=== PATIENT | male | born 1995 | race Caucasian/White ===

== ENCOUNTER 2016-08-26 14:23 | Emergency (ER) | payer OTHER ==
[2016-08-26 14:31] VITALS: BP 140/76
[2016-08-26] MEDS ORDERED: ACETAMINOPHEN 325 MG TABLET PO ONE (14:46)
--- NOTE | 2016-08-26 14:47 | ER Document Report ---
ED Medical Screen (RME) - General Stated Complaint: BACK PAIN Mode of Arrival: Wheelchair Information source: Patient Notes: Patient complains of lower back pain for the past week that worsened today. Patient denies any radiculopathy or paresthesia. Patient denies any injury. Patient does complain of some dysuria. I have greeted and performed a rapid initial assessment of this patient. A comprehensive ED assessment and evaluation of the patient, analysis of test results and completion of the medical decision making process will be conducted by additional ED providers. Physical Exam - Vital signs Vitals: Temp Pulse Resp BP Pulse Ox 97.9 F 83 16 140/76 H 98 08/26/16 14:30 08/26/16 14:30 08/26/16 14:30 08/26/16 14:30 08/26/16 14:30 - Back Back: Tender - Lower lumbar tenderness Course - Vital Signs Vital signs: Temp Pulse Resp BP Pulse Ox 97.9 F 83 16 140/76 H 98 08/26/16 14:30 08/26/16 14:30 08/26/16 14:30 08/26/16 14:30 08/26/16 14:30
[2016-08-26] MEDS ORDERED: KETOROLAC TROMETHAMINE 60 MG/2 ML SDV IM ONE (15:21)
--- NOTE | 2016-08-26 15:24 | ER Document Report ---
HPI - HPI Patient complains to provider of: back pain Onset: Other - this week Onset/Duration: Persistent Quality of pain: Achy Severity: Moderate Pain Level: 3 Context: Patient presents to the emergency department with complaints of low back pain. He reports the pain started last week. He denies trauma. He denies fever vomiting diarrhea. He denies urinary or bowel incontinence or retention. Denies numbness or tingling. 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 He denies past medical history of steroid injections. Denies history of cancer or IV drug use. Patient reports when he went to the bathroom today he had to sit down because his low back felt like it was tensing up when he was urinating. He denies pain with void. He denies penile discharge. Patient reports the same thing happened to his back almost a year ago. It happened after he helped somebody out of the ditch. He denies recent trauma or heavy lifting of anything. 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 IN LAST 30 DAYS: No - HEENT HEENT: Atraumatic, Normocephalic - NECK Neck: Normal Inspection, Supple. negative: Lymphadenopathy-Left, Lymphadenopathy-Right - RESPIRATORY Respiratory: Breath Sounds Normal, No Respiratory Distress O2 Sat by Pulse Oximetry: 98 - CARDIOVASCULAR Cardiovascular: Regular Rate, Regular Rhythm - GI/ABDOMEN Gastrointestinal: Abdomen Soft, Abdomen Non-Tender - BACK Back: Normal Inspection - No obvious deformity good distal movement and sensation complains of paraspinal tenderness mostly on the left side. Good reflexes, no erythema swelling or warmth noted - MUSCULOSKELETAL/EXTREMETIES Musculoskeletal/Extremeties: [place]ONY - NEURO Level of Consciousness: Awake, Alert, Appropriate Motor/Sensory: No Motor Deficit - DERM Integumentary: Warm, Dry Adult Front & Back Diagram: 1 - Complains of pain 2 - Complains of pain denies vertebral tenderness Course - Re-evaluation Re-evalutation: 08/26/16 15:25 The patient presents with low back pain without signs of spinal cord compression , cauda equine syndrome, infection, aneurysm, or other serious etiology. The patient is neurologically intact. The patient has good distal movement and sensation, denies urinary or bowel incontinence/retention. Given the extremely low risk of these diagnosis, further testing and evaluation for these possibilities does not appear to be indicated at this time. The patient has been instructed to return if the symptoms worsen or change in anyway. Patient was instructed on warning signs of back pain and spinal cord injuries. He was instructed to return for these symptoms. He verbalized understanding. - Vital Signs Vital signs: Temp Pulse Resp BP Pulse Ox 97.9 F 83 16 140/76 H 98 08/26/16 14:30 08/26/16 14:30 08/26/16 14:30 08/26/16 14:30 08/26/16 14:30 Discharge - Discharge Clinical Impression: Elevated blood pressure reading Back pain Qualifiers: Back pain location: low back pain Chronicity: acute Back pain laterality: bilateral Sciatica presence: without sciatica Qualified Code(s): M54.5 - Low back pain Condition: Stable Disposition: HOME, SELF-CARE Instructions: Muscle Strain ([facility]), Low Back Pain ([facility]), Ice Packs ([facility]), Warm Packs ([facility]), Toradol Injection ([facility]), Ibuprofen (General) ([facility]), Muscle Relaxers ([facility]) Additional Instructions: *You have been evaluated for back pain, muscle strain *Take medication as prescribed *Rest/ alternate with ice and heat packs *Follow up with a primary care provider within one week for recheck *Monitor your blood pressure. Your blood pressure was elevated today. This may be because you were anxious, in pain or because you need medication. It is important to follow up with your primary care provider for full evaluation. *Return to ED for worsening condition, changes, needs Prescriptions: Cyclobenzaprine HCl [Flexeril 10 Mg Tablet] 10 mg PO TID #30 tablet Ibuprofen [Motrin 800 mg Tablet] 800 mg PO TID #30 tablet Forms: Elevated Blood Pressure, Return to Work
== END 2016-08-26 15:43 | disposition home or self-care (01) ==
LOC: ER 14:23
DX: M54.5 Low back pain (principal); R03.0 Elevated blood-pressure reading, without diagnosis of hypertension
CPT/HCPCS: 99283; 96372; J1885